=== PATIENT | female | born 1945 | race Asian ===

== ENCOUNTER 2017-01-31 22:24 | Emergency (ER) | payer MEDICARE, OTHER ==
--- NOTE | 2017-02-01 00:05 | Emergency Department Report ---
HPI - General Chief Complaint: Extremity Injury, Lower Time Seen by Provider: 02/01/17 00:01 - HPI HPI: This is a 71 year-old female who presents to the emergency department from [facility] with a reported complaint of left leg pain and swelling. Patient has a history of dementia and/or encephalopathy and is currently and possibly chronically nonverbal and therefore the patient is a poor historian. Currently it is unknown the duration of the patient's symptoms. It is unknown whether the patient is ambulatory in general or whether the patient received anything for her symptoms prior to presentation. She has a primary care physician listed as Dr. Sridhar Mello. ED Past Medical Hx - Past Medical History Hx Hypertension: Yes Hx Dementia: Yes Additional medical history: High Cholesterol - Social History Smoking Status: Unknown if ever smoked - Medications Home Medications: Home Medications Medication Instructions Recorded Confirmed Last Taken Type Acetaminophen [Acetaminophen TAB] 500 mg PO Q12HR 02/26/15 02/26/15 01/31/17 History Atenolol [Tenormin] 50 mg PO DAILY 02/26/15 02/26/15 01/31/17 History Donepezil [Aricept] 5 mg PO BID 02/26/15 02/26/15 01/31/17 History Haloperidol [Haldol] 2 mg PO QDAY 02/26/15 02/26/15 01/31/17 History Sertraline [Zoloft] 50 mg PO QDAY 02/26/15 02/26/15 01/31/17 History traZODone [Desyrel] 25 mg PO QHS 02/26/15 02/26/15 01/31/17 History Pantoprazole [Protonix TAB] 40 mg PO QDAY #30 tablet 02/27/15 01/31/17 Rx Levofloxacin [Levaquin TAB] 500 mg PO QDAY #5 tablet 01/28/17 01/31/17 Rx ED Review of Systems ROS: Stated complaint: LEFT LEG PAIN AND SWELLING Other details as noted in HPI Comment: Unobtainable due to pts medical conditions Physical Exam - Physical Exam Vital Signs: Vital Signs 01/31/17 01/31/17 01/31/17 23:07 23:10 23:16 Temperature 98.6 F Pulse Rate 99 H 96 H 102 H Respiratory 16 17 12 Rate Blood Pressure 139/60 142/67 Blood Pressure 139/60 [Right] O2 Sat by Pulse 100 100 100 Oximetry Physical Exam: GENERAL: The patient is well-developed well-nourished. HENT: Normocephalic. Atraumatic. Patient has moist mucous membranes. EYES: Extraocular motions are intact. Pupils equal reactive to light bilaterally. NECK: Supple. Trachea is midline. CHEST/LUNGS: Clear to auscultation. There is no respiratory distress noted. HEART/CARDIOVASCULAR: Regular. There is no tachycardia. There is no gallop rub or murmur. ABDOMEN: Abdomen is soft, nontender. Patient has normal bowel sounds. There is no abdominal distention. SKIN: Skin is warm and dry. There is some nonpitting swelling around the circumferential left knee and proximal tib-fib. There is no erythema, fluctuance or lesions. NEURO: Patient is awake but mostly nonverbal. Follows a few commands. Withdraws from painful stimuli. MUSCULOSKELETAL: There is some mild tenderness to palpation with flexion and/or extension of the left knee. No laxity with valgus or varus stress. Negative anterior and posterior drawer test. Neurovascularly intact. ED Course Vital Signs 01/31/17 01/31/17 01/31/17 23:07 23:10 23:16 Temperature 98.6 F Pulse Rate 99 H 96 H 102 H Respiratory 16 17 12 Rate Blood Pressure 139/60 142/67 Blood Pressure 139/60 [Right] O2 Sat by Pulse 100 100 100 Oximetry - Consultations Consultation #1: I spoke to the orthopedist supervisor carton and can supply for [facility], Dr. Bucio, regarding the lateral tibial plateau fracture and how to proceed. Dr. Rayk this into the case presentation and the imaging study/report and did not feel that the patient required admission or immediate surgical intervention. He has agreed to see the patient and his clinic on Tuesday. He recommends a knee immobilizer and for the patient to remain nonweightbearing until follow-up. 02/01/17 05:33 Consultation #2: I spoke to the patient's brother, Jose Renae, to let him know of the patient's presentation here, the diagnosis of the tibial plateau fracture, the plan for discharge home with knee immobilizer and nonweightbearing, and the need for follow-up with the orthopedist on Tuesday he says that he will follow up with the assisted living facility and make sure that she has appropriate follow-up. 02/01/17 06:05 02/01/17 06:05 ED Medical Decision Making - Lab Data Result diagrams: 02/01/17 00:10 02/01/17 00:10 - Radiology Data Radiology results: report reviewed CT of the left lower extremity without contrast shows mildly depressed comminuted fracture through the lateral tibial plateau. There is depression of the lateral tibial plateau by 3-4 mm. X-ray of the left femur and tib-fib shows a possible lateral tibial plateau fracture. Moderate size knee joint effusion is present. Subcutaneous edema. - Medical Decision Making 71-year-old female presents from her ECF with concern for left leg pain and swelling. She has a mild amount of discomfort to palpation around the knee and there is some swelling but no obvious deformities. X-rays were done of the tib- fib and femur and the results showed concern for possible tibial plateau fracture but recommended CT imaging. CT confirmed mildly depressed comminuted fracture to the lateral tibial plateau. The patient is normally ambulatory prior to her fall about 6 days ago. We do not have any orthopedist coverage for the next few days so I contacted [facility] and spoke with an orthopedist to recommended knee immobilizer, nonweightbearing, did not feel the patient required admission and/or transfer and has agreed to see the patient in his clinic on Tuesday. INFORMATION was given to the patient by discharge instructions as well as to the patient's brother. - Differential Diagnosis fracture, dislocation, DVT, cellulitis Critical Care Time: No Critical care attestation.: If time is entered above; I have spent that time in minutes in the direct care of this critically ill patient, excluding procedure time. ED Disposition Clinical Impression: Tibial plateau fracture, left Qualifiers: Encounter type: initial encounter Fracture type: closed Qualified Code(s): S82.142A - Displaced bicondylar fracture of left tibia, initial encounter for closed fracture Disposition: TO HOME OR SELFCARE Is pt being admited?: No Condition: Stable Instructions: Leg Fracture (ED) Additional Instructions: You were found to have a tibial plateau fracture of your left leg/knee. You will need to follow-up with an orthopedist in the next few days. You should remain in the knee immobilizer until follow-up with the orthopedist. You will be non-weight bearing to the left lower extremity until follow-up with the orthopedist. Return to the emergency Department with any worsening of your symptoms or any acute distress. I spoke with an orthopedist, Dr. Bucio, through [facility] regarding your injury and he has graciously agreed to see you in the office/clinic on TuesdayFebruary 02. The phone number to call for an appointment is . I have also given you a referral for another orthopedist, Dr. Fallon. Referrals: PRIMARY MD AGNES [Primary Care Provider] - 3-5 Days ELIJAH FALLON MD [Staff Physician] - 3-5 Days Time of Disposition: 05:41
--- NOTE | 2017-02-01 00:42 | XRay Report ---
FINAL REPORT PROCEDURE: XR FEMUR 2+V LT TECHNIQUE: LEFT femur radiographs, AP and lateral views. HISTORY: leg pain COMPARISON: No prior studies are available for comparison. FINDINGS: There appears to be mild lateral downsloping of the lateral tibial plateau. There is a subtle oblique lucency projecting through the lateral aspect of the tibial plateau. I cannot exclude a mild impaction fracture. There is a moderate-sized knee effusion present. Bone spurs are seen at the insertion of the quadriceps tendon on the patella and the patellar tendon insertion as well. Subcutaneous edema visualized throughout the left lower extremity. This is greater laterally than medially. IMPRESSION: Possible lateral tibial plateau fracture. Consider plain films of the knee or CT scan for further evaluation. Moderate-sized knee joint effusion is present Subcutaneous edema present as described.
[2017-02-01 00:50] LABS: Basophils % (Auto) 0.7 % (0.0-1.8); Eosinophils % (Auto) 0.5 % (0.0-4.3); Hematocrit 37.6 % (30.3-42.9); Hemoglobin 12.1 gm/dl (10.1-14.3); Mean Corpuscular HGB Conc 32 % (30-34); Mean Corpuscular Hemoglobin 30 pg (28-32); Mean Corpuscular Volume 94 fl (79-97); Platelet Count 338 K/mm3 (140-440); Red Cell Distribution Width 13.4 % (13.2-15.2); White Blood Count 9.2 K/mm3 (4.5-11.0)
[2017-02-01 00:55] LABS: Blood Urea Nitrogen 16 mg/dL (7-17); Calcium 9.8 mg/dL (8.4-10.2); Carbon Dioxide 28 mmol/L (22-30); Chloride 102.3 mmol/L (98-107); Creatine Kinase 1421 units/L (30-135); Glucose 105 mg/dL (65-100); Potassium 3.6 mmol/L (3.6-5.0); Sodium 140 mmol/L (137-145)
[2017-02-01 00:56] LABS: Anion Gap 13 mmol/L
[2017-02-01] MEDS ORDERED: NACL 0.9% 1000 ML 1,000 ML IV ONE ×2 (01:04→02:47)
--- NOTE | 2017-02-01 02:18 | Cat Scan Report ---
FINAL REPORT EXAM: CT LOWER EXTREMITY LT WO CON HISTORY: knee pain, ? plateau fracture LT KNEE COMPARISON: Plain films of the left femur from the same date. TECHNIQUE: Contiguous axial images were obtained. Additional sagittal and coronal reformatted images were obtained. FINDINGS: There is a depressed comminuted fracture through the lateral tibial plateau. There is depression of the lateral tibial plateau by 3-4 millimeters. Intracondylar notch and medial tibial plateau are preserved. Mild narrowing of the medial joint space compartment with mild marginal osteophyte. Small joint effusion with fluid fluid level. Mild patellar osteophyte and small superior inferior patellar enthesophyte. The patella, distal femur and proximal fibula are intact. IMPRESSION: Mildly depressed comminuted fracture through the lateral tibial plateau. There depression of the lateral tibial plateau by 3-4 millimeters.
[2017-02-01 05:52] VITALS: BP 101/64
--- NOTE | 2017-02-01 07:34 | XRay Report ---
LEFT TIBIA/FIBULA, 2 views: History: Left leg pain and swelling. Findings: A mildly depressed lateral tibial plateau fracture is identified. Depression is estimated at 5-6 mm. Hemarthrosis at the right knee is noted. The remainder of the tibia and fibula are intact. There is diffuse soft tissue swelling. IMPRESSION: Mildly displaced lateral tibial plateau fracture. Hemarthrosis at the knee. Further evaluation with CT left knee without contrast is recommended.
== END 2017-02-01 06:38 | disposition home or self-care (01) ==
LOC: ED 22:24
DX: S82.142A Displaced bicondylar fracture of left tibia, initial encounter for closed fracture (principal); I10 Essential (primary) hypertension; F03.90 Unspecified dementia, unspecified severity, without behavioral disturbance, psychotic disturbance, mood disturbance, and anxiety; E78.00 Pure hypercholesterolemia, unspecified; W19.XXXA Unspecified fall, initial encounter; Y93.89 Activity, other specified; Y92.89 Other specified places as the place of occurrence of the external cause; Y99.8 Other external cause status
CPT/HCPCS: 29505; 36415; 73552; 73590; 73700; 80048; 82140; 82550; 85025; 96360; 96361; 99284; J7030

== ENCOUNTER 2017-02-11 08:09 | Day surgery (SDC) | payer MEDICARE ==
[2017-02-11] MEDS ORDERED: SUBLIMAZE ONE (09:08)
[2017-02-11] MEDS ORDERED: XYLOCAINE MPF 2% ONE (09:08)
[2017-02-11] MEDS ORDERED: DIPRIVAN 10 MG/ML IV ONE (09:08)
--- NOTE | 2017-02-11 09:09 | Anesthesia Consultation ---
Anesthesia Consult and Med Hx Date of service: 02/11/17 - Airway Anesthetic Teeth Evaluation: Partials (unsure if upper or lower) ROM Head & Neck: Adequate Mental/Hyoid Distance: Adequate - Pulmonary Exam CTA: Yes - Cardiac Exam Cardiac Exam: RRR - Pre-Operative Health Status ASA Pre-Surgery Classification: ASA3 Proposed Anesthetic Plan: General - Pulmonary Hx Smoking: No Hx Sleep Apnea: No (DARRION PRE SCREEN LOW RISK) - Cardiovascular System Hx Hypertension: Yes - Central Nervous System Hx Psychiatric Problems: Yes (HX PSYCHOSIS, WITH PEROIDS OF AGITATION) - Other Systems Hx Cancer: No - Additional Comments Anesthesia Medical History Comments: could not perform airway exam, ptn has dementia
--- NOTE | 2017-02-11 09:09 | Anesthesia Day of Surgery ---
Anesthesia Day of Surgery - Day of Surgery Patient Examined: Yes Patient H&P Reviewed: Yes Patient is NPO: Yes
[2017-02-11] MEDS ORDERED: DILAUDID IV PRN (09:16)
[2017-02-11] MEDS ORDERED: MARCAINE-EPI/PF 0.5%-1:200,000 INFILTRATI ONE ×3 (09:30→12:00)
[2017-02-11] MEDS ORDERED: NEO SYNEPHRINE/NS Syringe(OR USE) IV ONE (09:30)
[2017-02-11] MEDS ORDERED: DEPO-MEDROL ONE (09:30)
[2017-02-11] MEDS ORDERED: PEPCID IV NR (10:00)
[2017-02-11] MEDS ORDERED: NACL 0.9% 1000 ML 1,000 ML IV SCH (10:00)
[2017-02-11] MEDS ORDERED: NACL 0.9% IR ONE (11:20)
[2017-02-11] MEDS ORDERED: DILAUDID ONE ×2 (11:37→12:04)
[2017-02-11] MEDS ORDERED: ZOFRAN ONE (12:00)
--- NOTE | 2017-02-11 12:24 | Procedure Note ---
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 Next the left lower extremity was exsanguinated followed by inflation of the pneumatic tourniquet to 300 mmHg routine stab wounds were made about the parapatellar areas following introduction of the arthroscope the hematoma was evacuated using the normal saline solution. Arthroscope was placed in the medial compartment the medial meniscus appeared to be intact as well as the articular surface of both the distal femur and proximal tibia the anterior cruciate ligament was seen and again appeared to be intact in the lateral compartment she was noted to have some degenerative tears in the lateral meniscus as well as fracture pattern along the mid to anterior portion of the lateral meniscus with minimal depression of the articular surface probe was used to next a evaluate the stability of the articular fragments following this the knee was then brought into extension. A C-arm was then used to evaluate the fracture using 2 smooth K wires inserted along the lateral border of the lateral tibial plateau the screws were advanced to medial border of the proximal tibia. Two 6.5mm cannulated screws were inserted using washers the fragments were compressed and AP and lateral x-ray were obtained and showed good reduction at the fracture site and placement of the cannulated screws. Following placement of the screws the arthroscope was reinserted into the knee joint medial fracture line noted prior to the screw placement appeared to reduce into a more anatomic position. Next the arthroscope was removed and the stab wounds were repaired using 3-0 nylon routine. Dressings were applied patient tolerated the procedure there complications. Anesthesia: GETA Surgeon: ELIJAH GARCIA Estimated blood loss: minimal Pathology: none Condition: stable Disposition: PACU
[2017-02-11] MEDS ORDERED: LOPRESSOR IV ONE (12:29)
[2017-02-11] MEDS ORDERED: NORMODYNE IV ONE (14:00)
--- NOTE | 2017-02-11 14:14 | Post Anesthesia Evaluation ---
- Post Anesthesia Evaluation Patient Participated: Yes (opens eyes but does not following commands) Airway Patent: Yes Stable Respiratory Function: Yes Nausea/Vomiting: No Temp > 96.8F: Yes Pain Manageable: Yes Adequeate Hydration: Yes Anesthesia Complications: No Block Receding Appropriately: Not Applicable Patient on Ventilator: No
[2017-02-11 15:08] VITALS: BP 169/95
--- NOTE | 2017-02-11 16:10 | XRay Report ---
Operative left knee: AP and lateral views demonstrate two transverse screws through the tibia in the subpatellar location. No other significant findings.
== END 2017-02-11 15:36 | disposition other institution (70) ==
LOC: OR 08:09
PROVIDERS: ATTEND Orthopaedic Surgery
DX: S82.142A Displaced bicondylar fracture of left tibia, initial encounter for closed fracture (principal); I10 Essential (primary) hypertension; F03.90 Unspecified dementia, unspecified severity, without behavioral disturbance, psychotic disturbance, mood disturbance, and anxiety; E78.00 Pure hypercholesterolemia, unspecified; A41.9 Sepsis, unspecified organism; N39.0 Urinary tract infection, site not specified; Z86.718 Personal history of other venous thrombosis and embolism; Z79.899 Other long term (current) drug therapy; X58.XXXA Exposure to other specified factors, initial encounter; Z82.49 Family history of ischemic heart disease and other diseases of the circulatory system
CPT/HCPCS: 27532; 73560; A4217; C1713; J1170; J2370; J2405; J2704; J3010; J7030; J1030

== ENCOUNTER 2017-02-22 00:05 | Emergency (ER) | payer MEDICARE ==
--- NOTE | 2017-02-22 01:51 | Emergency Department Report ---
ED General Adult HPI - General Chief complaint: Fall Stated complaint: MEDICAL CLEARANCE Time Seen by Provider: 02/22/17 01:42 Source: EMS (ems notes not available at time of chart dictation), RN notes reviewed, old records reviewed Mode of arrival: Stretcher Limitations: Altered Mental Status, Other (patient is demented. Patient is a poor historian. Left lower extremity is in a knee immobilizer) - History of Present Illness Initial comments: This is a 71-year-old female. The patient is previously known to this provider. Has a past medical history of dementia, recent hospital admission for surgical fixation to left lower extremity tibial plateau fracture. Patient is sent to the ER by personal correction/long term for medical clearance after being found on the floor, for uncertain duration of time and uncertain mechanism. The patient has no complaints at this time. -: unknown Severity scale (0 -10): 0 Improves with: none Worsens with: none Associated Symptoms: denies other symptoms - Related Data Home Medications Medication Instructions Recorded Confirmed Last Taken Acetaminophen [Acetaminophen TAB] 500 mg PO PRN PRN 02/26/15 02/11/17 02/10/17 Donepezil [Aricept] 10 mg PO QHS 02/26/15 02/11/17 02/11/17 Haloperidol [Haldol] 2 mg PO BID 02/26/15 02/11/17 02/11/17 Sertraline [Zoloft] 75 mg PO QDAY 02/26/15 02/11/17 02/10/17 AtorvaSTATin [Lipitor] 40 mg PO QHS 02/08/17 02/11/17 02/10/17 Memantine HCl [Namenda] 10 mg PO BID 02/08/17 02/11/17 02/11/17 hydrALAZINE [Apresoline] 12.5 mg PO TID 02/08/17 02/11/17 02/10/17 Previous Rx's Medication Instructions Recorded Last Taken Type HYDROcodone/APAP 5-325 [[place] 1 each PO Q4HR PRN #30 tablet 02/11/17 Unknown Rx 5-325 mg TAB] Allergies Allergy/AdvReac Type Severity Reaction Status Date / Time No Known Allergies Allergy Verified 02/08/17 11:44 ED Review of Systems ROS: Stated complaint: MEDICAL CLEARANCE Other details as noted in HPI Comment: Unobtainable due to pts medical conditions ED Past Medical Hx - Past Medical History Previous Medical History?: Yes Hx Hypertension: Yes Hx Dementia: Yes (NONVERBAL AT TIMES) Additional medical history: High Cholesterol - Social History Smoking Status: Never Smoker - Medications Home Medications: Home Medications Medication Instructions Recorded Confirmed Last Taken Type Acetaminophen [Acetaminophen TAB] 500 mg PO PRN PRN 02/26/15 02/11/17 02/10/17 History Donepezil [Aricept] 10 mg PO QHS 02/26/15 02/11/17 02/11/17 History Haloperidol [Haldol] 2 mg PO BID 02/26/15 02/11/17 02/11/17 History Sertraline [Zoloft] 75 mg PO QDAY 02/26/15 02/11/17 02/10/17 History AtorvaSTATin [Lipitor] 40 mg PO QHS 02/08/17 02/11/17 02/10/17 History Memantine HCl [Namenda] 10 mg PO BID 02/08/17 02/11/17 02/11/17 History hydrALAZINE [Apresoline] 12.5 mg PO TID 02/08/17 02/11/17 02/10/17 History HYDROcodone/APAP 5-325 [[place] 1 each PO Q4HR PRN #30 tablet 02/11/17 Unknown Rx 5-325 mg TAB] ED Physical Exam - General Limitations: Other (patient is demented, patient nonverbal, patient is a poor historian) General appearance: alert, in no apparent distress - Head Head exam: Present: atraumatic, normocephalic - Eye Eye exam: Present: normal appearance, EOMI - ENT ENT exam: Present: normal exam, normal orophraynx, mucous membranes moist - Neck Neck exam: Present: normal inspection, full ROM. Absent: tenderness, meningismus - Respiratory Respiratory exam: Present: normal lung sounds bilaterally. Absent: respiratory distress, wheezes, rales, rhonchi, stridor, chest wall tenderness - Cardiovascular Cardiovascular Exam: Present: regular rate, normal rhythm, normal heart sounds. Absent: bradycardia, tachycardia, irregular rhythm, systolic murmur, diastolic murmur, rubs, gallop - GI/Abdominal GI/Abdominal exam: Present: soft, normal bowel sounds. Absent: distended, tenderness, guarding, rigid, pulsatile mass - Extremities Exam Extremities exam: Present: normal inspection, full ROM, normal capillary refill , other (the compartments are soft. The pelvis is stable. There is no long bony tenderness. Surgical site in the left lower extremity demonstrates no redness, pus or streaking. No long bony tenderness. 2+ pulses noted in the bilateral upper and lower extremities.). Absent: pedal edema, joint swelling, calf tenderness - Back Exam Back exam: Present: normal inspection. Absent: tenderness, CVA tenderness (R), paraspinal tenderness - Neurological Exam Neurological exam: Present: alert, other (there is no facial droop. Patient moving 4 extremities spontaneously.) - Psychiatric Psychiatric exam: Present: normal affect, normal mood - Skin Skin exam: Present: warm, dry, intact, normal color. Absent: rash ED Course Vital Signs 02/22/17 02/22/17 02/22/17 00:25 00:30 00:37 Temperature 98.4 F Pulse Rate 79 67 Respiratory 14 15 14 Rate Blood Pressure 141/63 141/63 Blood Pressure 141/63 [Left] O2 Sat by Pulse 100 100 100 Oximetry 02/22/17 02/22/17 02/22/17 00:45 01:00 01:15 Temperature Pulse Rate 74 71 71 Respiratory 15 15 12 Rate Blood Pressure 139/109 139/63 147/63 Blood Pressure [Left] O2 Sat by Pulse Oximetry 02/22/17 02/22/17 02/22/17 01:30 01:45 02:00 Temperature Pulse Rate 70 72 72 Respiratory 10 L 15 14 Rate Blood Pressure 139/70 146/66 139/70 Blood Pressure [Left] O2 Sat by Pulse 100 100 Oximetry 02/22/17 02:15 Temperature Pulse Rate 69 Respiratory 16 Rate Blood Pressure 137/63 Blood Pressure [Left] O2 Sat by Pulse Oximetry ED Medical Decision Making - Lab Data Result diagrams: 02/22/17 02:04 02/22/17 02:04 Vital Signs 02/22/17 02/22/17 02/22/17 00:25 00:30 00:37 Temperature 98.4 F Pulse Rate 79 67 Respiratory 14 15 14 Rate Blood Pressure 141/63 141/63 Blood Pressure 141/63 [Left] O2 Sat by Pulse 100 100 100 Oximetry 02/22/17 02/22/17 02/22/17 00:45 01:00 01:15 Temperature Pulse Rate 74 71 71 Respiratory 15 15 12 Rate Blood Pressure 139/109 139/63 147/63 Blood Pressure [Left] O2 Sat by Pulse Oximetry 02/22/17 02/22/17 02/22/17 01:30 01:45 02:00 Temperature Pulse Rate 70 72 72 Respiratory 10 L 15 14 Rate Blood Pressure 139/70 146/66 139/70 Blood Pressure [Left] O2 Sat by Pulse 100 100 Oximetry 02/22/17 02:15 Temperature Pulse Rate 69 Respiratory 16 Rate Blood Pressure 137/63 Blood Pressure [Left] O2 Sat by Pulse Oximetry Labs 02/22/17 02/22/17 02/22/17 02:04 02:04 02:27 WBC 7.3 RBC 4.04 Hgb 12.4 Hct 37.4 MCV 93 MCH 31 MCHC 33 RDW 14.1 Plt Count 294 Sodium 141 Potassium 3.9 Chloride 106.8 Carbon Dioxide 23 Anion Gap 15 BUN 14 Creatinine 0.7 Estimated GFR > 60 BUN/Creatinine Ratio 20.00 Glucose 110 H Calcium 9.2 Total Creatine Kinase 112 Urine Color Yellow Urine Turbidity Clear Urine pH 5.0 Ur Specific [place] 1.029 Urine Protein <15 mg/dl Urine Glucose (UA) Neg Urine Ketones Neg Urine Blood Neg Urine Nitrite Neg Urine Bilirubin Neg Urine Urobilinogen 4.0 Ur Leukocyte Esterase Neg Urine WBC (Auto) 1.0 Urine RBC (Auto) 3.0 U Epithel Cells (Auto) 1.0 Calcium Oxalate Crystal 1+ Urine Mucus 2+ - EKG Data 02/22/17 03:22 Normal sinus, 70 beats per minute, normal intervals, normal axis, not morphologically consistent with STEMI. - Radiology Data Radiology results: report reviewed, image reviewed Noncontrast CT scan of the brain is negative. Noncontrast CT scan of the cervical spine is negative. - Medical Decision Making Differential diagnosis: Mechanical fall, intracranial injury, cervical spine injury Assessment and plan: 71-year-old female who was found down at her long term, uncertain duration of time, uncertain mechanism. Patient is afebrile, with reassuring vital signs, unremarkable laboratory studies, unremarkable physical exam, unremarkable EKG, no obvious traumatic injury, appears quite pleasant. There is no medical contrast indication at this time to the patient returning to her personal correction. Her surgical site appears to be clean and healing well, with no obvious infection. Critical care attestation.: If time is entered above; I have spent that time in minutes in the direct care of this critically ill patient, excluding procedure time. ED Disposition Clinical Impression: History of fall Disposition: DC/TX-[id number] ANOTHER TYPE HLTHCARE Is pt being admited?: No Does the pt Need Aspirin: No Condition: Stable Instructions: Fall Prevention (ED) Additional Instructions: Continue current outpatient medications. Follow-up with your orthopedic surgeon as scheduled within the next month. Follow-up with primary care doctor within the next month. Return to the ER readily with fevers, chills, lethargy, irritability, projectile vomiting, change in mental status, confusion, fevers, inability to tolerate liquid feeds. Referrals: PRIMARY CARE, [Primary Care Provider] - 3-5 Days MADHU WATTS MD [Staff Physician] - 3-5 Days ELIJAH GARCIA MD [Staff Physician] - 3-5 Days
[2017-02-22 02:14] LABS: Hematocrit 37.4 % (30.3-42.9); Hemoglobin 12.4 gm/dl (10.1-14.3); Mean Corpuscular HGB Conc 33 % (30-34); Mean Corpuscular Hemoglobin 31 pg (28-32); Mean Corpuscular Volume 93 fl (79-97); Platelet Count 294 K/mm3 (140-440); Red Blood Count 4.04 M/mm3 (3.65-5.03); Red Cell Distribution Width 14.1 % (13.2-15.2); White Blood Count 7.3 K/mm3 (4.5-11.0)
[2017-02-22 02:35] LABS: Blood Urea Nitrogen 14 mg/dL (7-17); Calcium 9.2 mg/dL (8.4-10.2); Carbon Dioxide 23 mmol/L (22-30); Chloride 106.8 mmol/L (98-107); Creatine Kinase 112 units/L (30-135); Glucose 110 mg/dL (65-100); Sodium 141 mmol/L (137-145)
[2017-02-22 03:02] LABS: Bilirubin,Urine NEG (Negative); Blood,Urine NEG (Negative); Ketones,Urine NEG (Negative); Leukocyte Esterase,Urine NEG (Negative); Mucus,Urine 2+ /HPF; Nitrite,Urine NEG (Negative); Protein,Urine <15 mg/dL mg/dL (Negative)
--- NOTE | 2017-02-22 03:09 | Cat Scan Report ---
FINAL REPORT EXAM: CT HEAD/BRAIN WO CON HISTORY: fall COMPARISON: CT of the head from December 30, 2016. TECHNIQUE: Axial images obtained skull base through vertex. FINDINGS: No acute intracranial hemorrhage, midline shift or pathologic extra axial fluid collection. [id number] age related volume loss with compensatory dilatation of the ventricular system and chronic small vessel ischemic disease. Volume loss is more pronounced involving the temporal lobes. Otherwise, acosta-white differentiation preserved. Calvarium grossly intact. Mild mucosal thickening the paranasal sinuses. Mastoid air cells are clear. Prior cataract surgery. IMPRESSION: No grossly acute intracranial abnormality. Mild to moderate age related volume loss and chronic small vessel ischemic disease.
--- NOTE | 2017-02-22 03:16 | Cat Scan Report ---
FINAL REPORT EXAM: CT CERVICAL SPINE WO CON HISTORY: fall COMPARISON: December 2016. TECHNIQUE: Axial images obtained through the cervical spine. Additional sagittal and coronal reformatted images were obtained. FINDINGS: Normal lordotic curvature of the cervical spine. Cervical vertebral body heights are preserved. No acute fracture or traumatic subluxation. Odontoid process, articular pillars and occipital condyles are intact. Mild to moderate loss of disc height throughout the cervical spine with prominent endplate osteophyte. There is moderate severe canal stenosis at the C3-C4 level due to endplate osteophyte broad-based disc bulge. Severe right and mild left foraminal narrowing at that level due to uncovertebral hypertrophy and facet changes. Mild to moderate canal stenosis mild foraminal narrowing at the C4-C5 through C6-C7 levels due to endplate osteophyte, broad-based disc bulges and uncovertebral hypertrophy. Mild to moderate calcified plaque at the carotid bifurcations. Mild depression of the superior T2 endplate stable from prior study. IMPRESSION: No acute fracture or subluxation of the cervical spine. Moderate severe focal degenerative changes at the C3-C4 level mild to moderate degenerative changes throughout the remainder of the cervical spine.
[2017-02-22 03:21] LABS: Anion Gap 15 mmol/L; Potassium 3.9 mmol/L (3.6-5.0)
[2017-02-22 05:54] VITALS: BP 141/65
== END 2017-02-22 07:32 | disposition other institution (70) ==
LOC: ED 00:05
DX: R41.82 Altered mental status, unspecified (principal); I10 Essential (primary) hypertension; F03.90 Unspecified dementia, unspecified severity, without behavioral disturbance, psychotic disturbance, mood disturbance, and anxiety; E78.00 Pure hypercholesterolemia, unspecified
CPT/HCPCS: 36415; 70450; 72125; 80048; 81001; 82550; 85027; 87086; 93005; 93010

== ENCOUNTER 2017-02-22 23:35 | Inpatient (IN) | payer MEDICARE ==
--- NOTE | 2017-02-23 00:48 | Emergency Department Report ---
HPI - General Chief Complaint: Fall Time Seen by Provider: 02/23/17 00:32 - HPI HPI: Randell Felton The patient is a 67-year-old female presenting with a chief complaint of fall at assisted living facility. The patient has a history of Alzheimer's and is unable to provide history. Patient reportedly had a ground-level fall at [facility]. Patient suffered abrasions to the right side of forehead. Patient makes eye contact but does not respond verbally when questioned. I spoke with staff at [facility] and they state at approximately 22:45 this evening while rounds were being made patient was again found on the floor. Last known well time was approximately 20:45 as vitals are taken every other hour. This fall was not witnessed Location: Head Duration: This evening Quality: Unknown Severity: Unknown Modifying factors: [see above] Context: [see above] Mode of transportation: [not driving] ED Past Medical Hx - Past Medical History Hx Hypertension: Yes Hx Dementia: Yes (NONVERBAL AT TIMES) Additional medical history: High Cholesterol - Surgical History Past Surgical History?: No - Family History Family history: no significant - Social History Smoking Status: Unknown if ever smoked - Medications Home Medications: Home Medications Medication Instructions Recorded Confirmed Last Taken Type Acetaminophen [Acetaminophen TAB] 500 mg PO PRN PRN 02/26/15 02/11/17 02/10/17 History Donepezil [Aricept] 10 mg PO QHS 02/26/15 02/11/17 02/11/17 History Haloperidol [Haldol] 2 mg PO BID 02/26/15 02/11/17 02/11/17 History Sertraline [Zoloft] 75 mg PO QDAY 02/26/15 02/11/17 02/10/17 History AtorvaSTATin [Lipitor] 40 mg PO QHS 02/08/17 02/11/17 02/10/17 History Memantine HCl [Namenda] 10 mg PO BID 02/08/17 02/11/17 02/11/17 History hydrALAZINE [Apresoline] 12.5 mg PO TID 02/08/17 02/11/17 02/10/17 History HYDROcodone/APAP 5-325 [[place] 1 each PO Q4HR PRN #30 tablet 02/11/17 Unknown Rx 5-325 mg TAB] ED Review of Systems ROS: Stated complaint: FALL Other details as noted in HPI Comment: Unobtainable due to pts medical conditions Physical Exam - Physical Exam Vital Signs: Vital Signs 02/22/17 23:59 Temperature 98.1 F Pulse Rate 70 Respiratory 18 Rate Blood Pressure 148/60 O2 Sat by Pulse 100 Oximetry Physical Exam: GENERAL: The patient is well-developed well-nourished elderly female lying on stretcher not appearing to be in acute distress. [] HEENT: Normocephalic. Abrasion to the right forehead and right periorbital region. Extraocular motions are intact. Patient has moist mucous membranes. NECK: Supple. No axial step-offs CHEST/LUNGS: Clear to auscultation. There is no respiratory distress noted. HEART/CARDIOVASCULAR: Regular. There is no tachycardia. There is no gallop rub or murmur. ABDOMEN: Abdomen is soft, nontender. Patient has normal bowel sounds. There is no abdominal distention. SKIN: There is no rash. There is no edema. There is no diaphoresis. NEURO: The patient is awake and makes eye contact but is nonverbal. MUSCULOSKELETAL: There is no deformity. ED Course Vital Signs 02/22/17 23:59 Temperature 98.1 F Pulse Rate 70 Respiratory 18 Rate Blood Pressure 148/60 O2 Sat by Pulse 100 Oximetry ED Medical Decision Making - Lab Data Result diagrams: 02/23/17 01:29 02/23/17 01:29 Laboratory Tests 02/23/17 02/23/17 01:29 01:29 WBC 6.2 RBC 4.30 Hgb 13.2 Hct 40.1 MCV 93 MCH 31 MCHC 33 RDW 13.9 Plt Count 297 Lymph % (Auto) 38.8 H Benzie % (Auto) 8.5 H Eos % (Auto) 1.5 Baso % (Auto) 1.2 Lymph # 2.4 Benzie # 0.5 Eos # 0.1 Baso # 0.1 Seg Neutrophils % 50.0 Seg Neutrophils # 3.1 Sodium 143 Potassium 4.1 Chloride 104.6 Carbon Dioxide 25 Anion Gap 18 BUN 11 Creatinine 0.7 Estimated GFR > 60 BUN/Creatinine Ratio 15.71 Glucose 97 Calcium 9.7 Total Creatine Kinase 140 H CK-MB (CK-2) 2.1 CK-MB (CK-2) Rel Index 1.5 Troponin T < 0.010 - EKG Data -: EKG Interpreted by Me EKG shows normal: sinus rhythm Rate: normal - EKG Data When compared to previous EKG there are: changes noted Interpretation: nonspecific ST-T wave sis (T-wave inversions in leads 1, aVL) - Radiology Data Radiology results: report reviewed (CT head, CT cervical spine), image reviewed (CT head, CT cervical spine) CT head, CT cervical spine (no acute injuries) - Medical Decision Making This is the second day in a roll the patient has been found on the ground and the fall has not been witnessed. It is uncertain if the patient is having syncopal episodes or simply falling. Given that this is the second time the patient is found on the ground limit the patient to the hospital for evaluation as I cannot be certain the patient suffered a syncopal episode - Differential Diagnosis ICH, closed head injury, cervical fracture, facial abrasion Critical care attestation.: If time is entered above; I have spent that time in minutes in the direct care of this critically ill patient, excluding procedure time. ED Disposition Clinical Impression: Closed head injury, Facial abrasion, Fall Disposition: DC-09 OP ADMIT IP TO THIS HOSP Is pt being admited?: Yes Does the pt Need Aspirin: Yes Condition: Fair Referrals: PRIMARY CARE, [Primary Care Provider] - 3-5 Days Time of Disposition: 02:34 (hospitalist paged)
--- NOTE | 2017-02-23 01:17 | Cat Scan Report ---
FINAL REPORT EXAM: CT HEAD/BRAIN WO CON HISTORY: fall COMPARISON: CT of the head from January 26, 2017. TECHNIQUE: Axial images obtained skull base through vertex. FINDINGS: No acute intracranial hemorrhage, midline shift or pathologic extra axial fluid collection. Moderate volume loss with compensatory dilatation of the ventricular system and chronic small vessel ischemic disease. Volume loss is more pronounced involving the temporal lobes. Otherwise, acosta-white differentiation preserved. Calvarium grossly intact. Prior cataract surgery. Mild calcification of carotid siphons. Visualized para-nasal sinuses and mastoid air cells are clear. Stable small bony outgrowth at the posterior inferior margin of the left occipital calvarium. Mild soft tissue swelling over the right frontal calvarium. IMPRESSION: No grossly acute intracranial abnormality. Moderate volume loss and mild chronic small vessel ischemic disease. Mild soft tissue swelling over the right frontal calvarium. No calvarial fracture.
--- NOTE | 2017-02-23 01:27 | Cat Scan Report ---
FINAL REPORT EXAM: CT CERVICAL SPINE WO CON HISTORY: fall COMPARISON: CT of the cervical spine from yesterday. TECHNIQUE: Axial images obtained through the cervical spine. Additional sagittal and coronal reformatted images were obtained. FINDINGS: Normal lordotic curvature of the cervical spine. Cervical vertebral body heights are preserved. No acute fracture or traumatic subluxation. Odontoid process, articular pillars and occipital condyles are intact. Moderate severe focal canal stenosis C3-C4 level due to endplate osteophyte and disc bulge at that level. Severe right and mild left foramina at that level due to uncovertebral hypertrophy. Mild to moderate canal stenosis and mild foraminal narrowing at the C4-C5 through C6-C7 levels due to endplate osteophyte, broad-based disc bulges and uncovertebral hypertrophy. Mild facet changes at those levels. No change from recent study. Minimal scarring at the lung apices. Small diverticulum at the lateral margin of the proximal cervical esophagus. Stable hypodense thyroid nodules. Stable subtle depression of the superior T2 endplate which appears chronic. IMPRESSION: No acute fracture or subluxation of the cervical spine. Moderate severe focal degenerative changes at the C3-C4 level and mild to moderate degenerative changes throughout the remainder of the cervical spine. No change from prior study.
[2017-02-23 02:05] LABS: Basophils % (Auto) 1.2 % (0.0-1.8); Eosinophils % (Auto) 1.5 % (0.0-4.3); Hematocrit 40.1 % (30.3-42.9); Hemoglobin 13.2 gm/dl (10.1-14.3); Mean Corpuscular HGB Conc 33 % (30-34); Mean Corpuscular Hemoglobin 31 pg (28-32); Mean Corpuscular Volume 93 fl (79-97); Platelet Count 297 K/mm3 (140-440); Red Cell Distribution Width 13.9 % (13.2-15.2); White Blood Count 6.2 K/mm3 (4.5-11.0)
[2017-02-23 02:26] LABS: Creatine Kinase MB 2.1 ng/mL (0.0-4.0)
[2017-02-23 02:27] LABS: Anion Gap 18 mmol/L; BUN/Creatinine Ratio 15.71; Blood Urea Nitrogen 11 mg/dL (7-17); Calcium 9.7 mg/dL (8.4-10.2); Carbon Dioxide 25 mmol/L (22-30); Chloride 104.6 mmol/L (98-107); Creatine Kinase 140 units/L (30-135); Glucose 97 mg/dL (65-100); Potassium 4.1 mmol/L (3.6-5.0); Sodium 143 mmol/L (137-145)
[2017-02-23] MEDS ORDERED: TYLENOL PO PRN (08:52)
[2017-02-23] MEDS ORDERED: ZOFRAN IM PRN (08:55)
--- NOTE | 2017-02-23 08:57 | Progress Note ---
Hospitalist Physical - Constitutional Vitals: Temp Pulse Resp BP Pulse Ox 98.1 F 75 18 109/75 100 02/22/17 23:59 02/23/17 05:55 02/23/17 05:55 02/23/17 05:55 02/23/17 04:03 Results - Labs CBC & Chem 7: 02/23/17 01:29 02/23/17 01:29 Labs: Laboratory Last Values WBC 6.2 K/mm3 (4.5-11.0) 02/23/17 01:29 RBC 4.30 M/mm3 (3.65-5.03) 02/23/17 01:29 Hgb 13.2 gm/dl (10.1-14.3) 02/23/17 01:29 Hct 40.1 % (30.3-42.9) 02/23/17 01:29 MCV 93 fl (79-97) 02/23/17 01:29 MCH 31 pg (28-32) 02/23/17 01:29 MCHC 33 % (30-34) 02/23/17 01:29 RDW 13.9 % (13.2-15.2) 02/23/17 01:29 Plt Count 297 K/mm3 (140-440) 02/23/17 01:29 Lymph % (Auto) 38.8 % (13.4-35.0) H 02/23/17 01:29 Alexander % (Auto) 8.5 % (0.0-7.3) H 02/23/17 01:29 Eos % (Auto) 1.5 % (0.0-4.3) 02/23/17 01:29 Baso % (Auto) 1.2 % (0.0-1.8) 02/23/17 01:29 Lymph # 2.4 K/mm3 (1.2-5.4) 02/23/17 01:29 Alexander # 0.5 K/mm3 (0.0-0.8) 02/23/17 01:29 Eos # 0.1 K/mm3 (0.0-0.4) 02/23/17 01:29 Baso # 0.1 K/mm3 (0.0-0.1) 02/23/17 01:29 Seg Neutrophils % 50.0 % (40.0-70.0) 02/23/17 01:29 Seg Neutrophils # 3.1 K/mm3 (1.8-7.7) 02/23/17 01:29 Sodium 143 mmol/L (137-145) 02/23/17 01:29 Potassium 4.1 mmol/L (3.6-5.0) 02/23/17 01:29 Chloride 104.6 mmol/L (98-107) 02/23/17 01:29 Carbon Dioxide 25 mmol/L (22-30) 02/23/17 01:29 Anion Gap 18 mmol/L 02/23/17 01:29 BUN 11 mg/dL (7-17) 02/23/17 01:29 Creatinine 0.7 mg/dL (0.7-1.2) 02/23/17 01:29 Estimated GFR > 60 ml/min 02/23/17 01:29 BUN/Creatinine Ratio 15.71 % 02/23/17 01:29 Glucose 97 mg/dL (65-100) 02/23/17 01:29 Calcium 9.7 mg/dL (8.4-10.2) 02/23/17 01:29 Total Creatine Kinase 140 units/L (30-135) H 02/23/17 01:29 CK-MB (CK-2) 2.1 ng/mL (0.0-4.0) 02/23/17 01:29 CK-MB (CK-2) Rel Index 1.5 (0-4) 02/23/17 01:29 Troponin T < 0.010 ng/mL (0.00-0.029) 02/23/17 01:29
[2017-02-23] MEDS ORDERED: LEVAQUIN PO SCH (10:00)
[2017-02-23] MEDS ORDERED: DULCOLAX PR PRN (10:00)
[2017-02-23] MEDS ORDERED: ZOFRAN IV PRN (11:00)
[2017-02-23] MEDS: ZOLOFT PO SCH (11:12)
[2017-02-23] MEDS: NAMENDA PO SCH ×2 (11:14→21:49)
[2017-02-23] MEDS: NACL 0.9% 1000 ML 1,000 ML IV SCH (11:17)
--- NOTE | 2017-02-23 11:18 | History and Physical Report ---
History of Present Illness Date of examination: 02/23/17 Date of admission: 02/23/17 08:52 Chief complaint: Fall History of present illness: Patient is a 71 years old with past medical history of hypertension, hyperlipidemia and Dementia, presents to emergency department with a chief complaint of fall at assisted living facility. Patient has history of Alzheimer's confused and unable to provide history. History taken from ED staff and medical records. Patient reportedly had a ground-level fall at [facility]. Patient have found down on the floor yesterday. Patient suffered abrasions to the right side of forehead. This fall was not witnessed. No reports of fever, chills, chest pain, palpitation, abdomen probable, syncope , seizures, or recent ill contacts. Past History Past Medical History: hypertension, hyperlipidemia, other (dementia) Past Surgical History: No surgical history Social history: other (unable to assess due to patient's mental status) Family history: other (unable to assess due to patient's mental status) Medications and Allergies Allergies Allergy/AdvReac Type Severity Reaction Status Date / Time No Known Allergies Allergy Verified 02/08/17 11:44 Home Medications Medication Instructions Recorded Confirmed Last Taken Type RX: Donepezil [Aricept] 10 mg PO QHS 02/26/15 02/23/17 02/11/17 History RX: Haloperidol [Haldol] 2 mg PO BID 02/26/15 02/23/17 02/11/17 History RX: Sertraline [Zoloft] 75 mg PO QDAY 02/26/15 02/23/17 02/10/17 History AtorvaSTATin [Lipitor] 40 mg PO QHS 02/08/17 02/23/17 02/10/17 History Memantine HCl [Namenda] 10 mg PO BID 02/08/17 02/23/17 02/11/17 History hydrALAZINE [Apresoline] 12.5 mg PO TID 02/08/17 02/23/17 02/10/17 History Levofloxacin [Levaquin TAB] 500 mg PO QDAY 02/23/17 02/23/17 Unknown History Active Meds: Active Medications Acetaminophen (Tylenol) 650 mg PO Q4H PRN PRN Reason: Pain MILD(1-3)/Fever >100.5/HURT Atorvastatin Calcium (Lipitor) 40 mg PO QHS [facility] Bisacodyl (Dulcolax) 10 mg MT QDAY PRN PRN Reason: Constipation unrelieved by MOM Donepezil HCl (Aricept) 10 mg PO QHS [facility] Hydralazine HCl (Apresoline) 12.5 mg PO TID [facility] Sodium Chloride (Nacl 0.9% 1000 Ml) 1,000 mls @ 75 mls/hr IV DIRECT [facility] Last Admin: 02/23/17 11:17 Dose: 75 mls/hr Memantine (Namenda) 10 mg PO BID [facility] Last Admin: 02/23/17 11:14 Dose: 10 mg Ondansetron HCl (Zofran) 4 mg IV Q4H PRN PRN Reason: Nausea And Vomiting Sertraline HCl (Zoloft) 75 mg PO QDAY [facility] Last Admin: 02/23/17 11:12 Dose: 75 mg Review of Systems ROS unobtainable: due to mental status (unable to assess due to patient's mental status) Exam - Constitutional Vitals: Temp Pulse Resp BP Pulse Ox 98.1 F 66 13 143/51 100 02/22/17 23:59 02/23/17 09:46 02/23/17 09:46 02/23/17 09:46 02/23/17 09:00 General appearance: Present: other (altered mental status) - EENT Eyes: Present: PERRL ENT: hearing intact - Neck Neck: Present: supple - Respiratory Respiratory effort: normal Respiratory: bilateral: CTA - Cardiovascular Heart rate: 73 Rhythm: regular Heart Sounds: Present: S1 & S2 - Extremities Extremities: no ischemia Peripheral Pulses: within normal limits - Abdominal General gastrointestinal: Present: soft, non-tender Female genitourinary: Present: deferred - Rectal Rectal Exam: deferred - Integumentary Integumentary: Present: clear (abrasions to the right side of forehead), warm, dry - Musculoskeletal Musculoskeletal: strength equal bilaterally - Psychiatric Psychiatric: intact judgment & insight (impaired judgment) - Neurologic Neurologic: moves all extremities - Allied Health Allied health notes reviewed: nursing Results - Labs CBC & Chem 7: 02/23/17 01:29 02/23/17 01:29 Labs: Laboratory Last Values WBC 6.2 K/mm3 (4.5-11.0) 02/23/17 01:29 RBC 4.30 M/mm3 (3.65-5.03) 02/23/17 01:29 Hgb 13.2 gm/dl (10.1-14.3) 02/23/17 01:29 Hct 40.1 % (30.3-42.9) 02/23/17 01:29 MCV 93 fl (79-97) 02/23/17 01:29 MCH 31 pg (28-32) 02/23/17 01: MCHC 33 % (30-34) 02/23/17 01:29 RDW 13.9 % (13.2-15.2) 02/23/17 01:29 Plt Count 297 K/mm3 (140-440) 02/23/17 01:29 Lymph % (Auto) 38.8 % (13.4-35.0) H 02/23/17 01:29 Wallace % (Auto) 8.5 % (0.0-7.3) H 02/23/17 01:29 Eos % (Auto) 1.5 % (0.0-4.3) 02/23/17 01:29 Baso % (Auto) 1.2 % (0.0-1.8) 02/23/17 01:29 Lymph # 2.4 K/mm3 (1.2-5.4) 02/23/17 01:29 Wallace # 0.5 K/mm3 (0.0-0.8) 02/23/17 01:29 Eos # 0.1 K/mm3 (0.0-0.4) 02/23/17 01:29 Baso # 0.1 K/mm3 (0.0-0.1) 02/23/17 01:29 Seg Neutrophils % 50.0 % (40.0-70.0) 02/23/17 01:29 Seg Neutrophils # 3.1 K/mm3 (1.8-7.7) 02/23/17 01:29 Sodium 143 mmol/L (137-145) 02/23/17 01:29 Potassium 4.1 mmol/L (3.6-5.0) 02/23/17 01:29 Chloride 104.6 mmol/L (98-107) 02/23/17 01:29 Carbon Dioxide 25 mmol/L (22-30) 02/23/17 01:29 Anion Gap 18 mmol/L 02/23/17 01:29 BUN 11 mg/dL (7-17) 02/23/17 01:29 Creatinine 0.7 mg/dL (0.7-1.2) 02/23/17 01:29 Estimated GFR > 60 ml/min 02/23/17 01:29 BUN/Creatinine Ratio 15.71 % 02/23/17 01:29 Glucose 97 mg/dL (65-100) 02/23/17 01:29 Calcium 9.7 mg/dL (8.4-10.2) 02/23/17 01:29 Total Creatine Kinase 140 units/L (30-135) H 02/23/17 01:29 CK-MB (CK-2) 2.1 ng/mL (0.0-4.0) 02/23/17 01:29 CK-MB (CK-2) Rel Index 1.5 (0-4) 02/23/17 01:29 Troponin T < 0.010 ng/mL (0.00-0.029) 02/23/17 01:29 - Imaging and Cardiology CT Scan - head: image reviewed Assessment and Plan Assessment and plan: Patient is a 71 years old with past medical history of hypertension, hyperlipidemia and Dementia, presents to emergency department with a chief complaint of fall at assisted living facility. Patient has history of Alzheimer's confused and unable to provide history. History taken from ED staff and medical records. Patient reportedly had a ground-level fall at [facility]. Patient have found down on the floor yesterday. Status Post Fall CT of the head no acute intracranial abnormalities except mild soft tissue swelling to right side of forehead. CT of the cervical spine no acute fracture or subluxation of the cervical spine. Supportive care. Facial abrasion Wound care consult Hypertension We will resume home antihypertensive medications Closely monitor blood pressure Hyperlipidemia Resume home antilipid agents. Mild rhabdomyolysis Most likely due to injury Started on IV fluid hydration Closely monior of total creatinine kinase. DVT/prophylaxis Lovenox Advance Directives: Yes VTE prophylaxis?: Chemical Contraindication Mechanical VTE Prophylaxis: Treatment Not Indicated Plan of care discussed with patient/family: Yes
[2017-02-23] MEDS: APRESOLINE PO SCH ×2 (13:46→21:50)
[2017-02-23] MEDS ORDERED: ARICEPT PO SCH (22:00)
[2017-02-23] MEDS ORDERED: LOVENOX SUB-Q SCH (22:00)
[2017-02-24] MEDS: NACL 0.9% 1000 ML 1,000 ML IV SCH (02:18)
[2017-02-24 05:02] LABS: Basophils % (Auto) 1.1 % (0.0-1.8); Eosinophils % (Auto) 1.3 % (0.0-4.3); Hematocrit 40.8 % (30.3-42.9); Hemoglobin 13.3 gm/dl (10.1-14.3); Mean Corpuscular HGB Conc 33 % (30-34); Mean Corpuscular Hemoglobin 30 pg (28-32); Mean Corpuscular Volume 93 fl (79-97); Platelet Count 310 K/mm3 (140-440); Red Blood Count 4.37 M/mm3 (3.65-5.03); White Blood Count 6.7 K/mm3 (4.5-11.0)
[2017-02-24 05:21] LABS: Anion Gap 17 mmol/L; Blood Urea Nitrogen 8 mg/dL (7-17); Calcium 9.1 mg/dL (8.4-10.2); Carbon Dioxide 22 mmol/L (22-30); Chloride 107.6 mmol/L (98-107); Glucose 96 mg/dL (65-100); Potassium 3.7 mmol/L (3.6-5.0); Sodium 143 mmol/L (137-145)
[2017-02-24] MEDS: APRESOLINE PO SCH (07:45)
--- NOTE | 2017-02-24 09:01 | Progress Note ---
Hospitalist Physical - Constitutional Vitals: Temp Pulse Resp BP Pulse Ox 99.1 F 69 20 182/76 100 02/24/17 02:03 02/24/17 07:45 02/24/17 02:18 02/24/17 07:45 02/24/17 02:03 General appearance: Present: other (altered mental status) Results - Labs CBC & Chem 7: 02/24/17 04:26 02/24/17 04:26 Labs: Laboratory Last Values WBC 6.7 K/mm3 (4.5-11.0) 02/24/17 04:26 RBC 4.37 M/mm3 (3.65-5.03) 02/24/17 04:26 Hgb 13.3 gm/dl (10.1-14.3) 02/24/17 04:26 Hct 40.8 % (30.3-42.9) 02/24/17 04:26 MCV 93 fl (79-97) 02/24/17 04:26 MCH 30 pg (28-32) 02/24/17 04:26 MCHC 33 % (30-34) 02/24/17 04:26 RDW 14.0 % (13.2-15.2) 02/24/17 04:26 Plt Count 310 K/mm3 (140-440) 02/24/17 04:26 Lymph % (Auto) 41.8 % (13.4-35.0) H 02/24/17 04:26 Barber % (Auto) 8.4 % (0.0-7.3) H 02/24/17 04:26 Eos % (Auto) 1.3 % (0.0-4.3) 02/24/17 04:26 Baso % (Auto) 1.1 % (0.0-1.8) 02/24/17 04:26 Lymph # 2.8 K/mm3 (1.2-5.4) 02/24/17 04:26 Barber # 0.6 K/mm3 (0.0-0.8) 02/24/17 04:26 Eos # 0.1 K/mm3 (0.0-0.4) 02/24/17 04:26 Baso # 0.1 K/mm3 (0.0-0.1) 02/24/17 04:26 Seg Neutrophils % 47.4 % (40.0-70.0) 02/24/17 04:26 Seg Neutrophils # 3.2 K/mm3 (1.8-7.7) 02/24/17 04:26 Sodium 143 mmol/L (137-145) 02/24/17 04:26 Potassium 3.7 mmol/L (3.6-5.0) 02/24/17 04:26 Chloride 107.6 mmol/L (98-107) H 02/24/17 04:26 Carbon Dioxide 22 mmol/L (22-30) 02/24/17 04:26 Anion Gap 17 mmol/L 02/24/17 04:26 BUN 8 mg/dL (7-17) 02/24/17 04:26 Creatinine 0.5 mg/dL (0.7-1.2) L 02/24/17 04:26 Estimated GFR > 60 ml/min 02/24/17 04:26 BUN/Creatinine Ratio 16.00 % 02/24/17 04:26 Glucose 96 mg/dL (65-100) 02/24/17 04:26 Calcium 9.1 mg/dL (8.4-10.2) 02/24/17 04:26 Total Creatine Kinase 140 units/L (30-135) H 02/23/17 01:29 CK-MB (CK-2) 2.1 ng/mL (0.0-4.0) 02/23/17 01:29 CK-MB (CK-2) Rel Index 1.5 (0-4) 02/23/17 01:29 Troponin T < 0.010 ng/mL (0.00-0.029) 02/23/17 01:29
[2017-02-24] MEDS: NAMENDA PO SCH (09:40)
[2017-02-24] MEDS: ZOLOFT PO SCH (09:40)
[2017-02-24 12:47] VITALS: BP 156/59
--- NOTE | 2017-02-24 15:16 | Discharge Summary ---
Providers - Providers Date of Admission: 02/23/17 08:52 Attending physician: ESTHELA ROTHMAN 02/23/17 11:52 Consult to Wound/ET Nurse [CONS] Routine Reason For Exam: wound eval Primary care physician: ANIMAL SITTER Hospitalization Condition: Good Hospital course: Patient is a 71 years old with past medical history of hypertension, hyperlipidemia and Dementia, presents to emergency department with a chief complaint of fall at assisted living facility. Patient has history of Alzheimer's confused and unable to provide history. Patient reportedly had a ground-level fall at [facility]. Patient have found down on the floor yesterday. Patient suffered abrasions to the right side of forehead. Patient diagnosed with status post fall, facial abrasion, hypertension, hyperlipidemia and mild rhabdomyolysis. CT of the head no acute intracranial abnormalities except mild soft tissue swelling to right side of forehead.CT of the cervical spine no acute fracture or subluxation of the cervical spine. She was treated IV fluid, antilipid and antihypertensive medications. Patient currently alert and oriented no acute mental changes. Patient clinically improved and stable for discharge. Patient was advised to follow up with her primary care. Discharged Diagnosed Status Post Fall Facial abrasion Hypertension Hyperlipidemia Mild rhabdomyolysis Disposition: DC/[place]-03 SNF [facility] Core Measure Documentation - Palliative Care Palliative Care/ Comfort Measures: Not Applicable - Core Measures Any of the following diagnoses?: none Exam - Constitutional Vitals: Temp Pulse Resp BP Pulse Ox 97.8 F 78 16 156/59 100 02/24/17 08:00 02/24/17 12:46 02/24/17 12:46 02/24/17 12:46 02/24/17 08:00 General appearance: Present: no acute distress - EENT Eyes: Present: PERRL ENT: hearing intact - Neck Neck: Present: supple - Respiratory Respiratory effort: normal Respiratory: bilateral: CTA - Cardiovascular Rhythm: regular Heart Sounds: Present: S1 & S2 - Extremities Extremities: no ischemia Peripheral Pulses: within normal limits - Abdominal General gastrointestinal: Present: soft, non-tender Female genitourinary: Present: deferred - Rectal Rectal Exam: deferred - Integumentary Integumentary: Present: clear ((abrasions to the right side of forehead)), warm , dry - Musculoskeletal Musculoskeletal: generalized weakness - Psychiatric Psychiatric: intact judgment & insight (impaired ) - Neurologic Neurologic: moves all extremities - Allied Health Allied health notes reviewed: nursing Plan Activity: fall precautions Weight Bearing Status: Weight Bear as Tolerated Diet: low fat, low salt, diabetic Follow up with: PRIMARY CARE, [Primary Care Provider] - 3-5 Days
== END 2017-02-24 13:19 | disposition home health service (06) | DRG 566 ==
LOC: ED 02-23 00:16 → CC2 02-23 08:52
PROVIDERS: ADMIT Internal Medicine; ATTEND Internal Medicine
DX: T79.6XXA Traumatic ischemia of muscle, initial encounter (principal); S00.81XA Abrasion of other part of head, initial encounter; I10 Essential (primary) hypertension; E78.5 Hyperlipidemia, unspecified; G30.9 Alzheimer's disease, unspecified; W18.39XA Other fall on same level, initial encounter; F02.80 Dementia in other diseases classified elsewhere, unspecified severity, without behavioral disturbance, psychotic disturbance, mood disturbance, and anxiety; Z79.899 Other long term (current) drug therapy; Y93.89 Activity, other specified; Y92.89 Other specified places as the place of occurrence of the external cause; Y99.8 Other external cause status
CPT/HCPCS: 36415; 70450; 72125; 80048; 82550; 82553; 84484; 85025; 93005; 93010; A9270-GY; J1650; J7030

== ENCOUNTER 2017-02-27 13:07 | Emergency (ER) | payer MEDICARE, OTHER ==
--- NOTE | 2017-02-27 13:59 | Emergency Department Report ---
ED Altered Mental Status HPI - General Chief Complaint: Altered Mental Status Stated Complaint: POSSIBLE CVA Time Seen by Provider: 02/27/17 13:48 Source: EMS Mode of arrival: Ambulatory Limitations: No Limitations - History of Present Illness Initial Comments: Patient is 71 years old female history of advanced dementia residing in a group home, brought here by EMS with a report that she has syncopal episode happened today. Denied any loss of consciousness. Patient is not communicating and according to the EMS states is her baseline. MD Complaint: altered mental status, confusion -: This morning Consistency of Symptoms: unknown Context: other (advised admission) Associated Symptoms: other (unable to obtain) - Related Data Home Medications Medication Instructions Recorded Confirmed Last Taken Donepezil [Aricept] 10 mg PO QHS 02/26/15 02/23/17 02/11/17 Haloperidol [Haldol] 2 mg PO BID 02/26/15 02/23/17 02/11/17 Sertraline [Zoloft] 75 mg PO QDAY 02/26/15 02/23/17 02/10/17 AtorvaSTATin [Lipitor] 40 mg PO QHS 02/08/17 02/23/17 02/10/17 Memantine HCl [Namenda] 10 mg PO BID 02/08/17 02/23/17 02/11/17 hydrALAZINE [Apresoline] 12.5 mg PO TID 02/08/17 02/23/17 02/10/17 Levofloxacin [Levaquin TAB] 500 mg PO QDAY 02/23/17 02/23/17 Unknown Allergies Allergy/AdvReac Type Severity Reaction Status Date / Time No Known Allergies Allergy Verified 02/08/17 11:44 ED Review of Systems ROS: Stated complaint: POSSIBLE CVA Other details as noted in HPI Comment: Unobtainable due to pts medical conditions ED Past Medical Hx - Past Medical History Previous Medical History?: Yes Hx Hypertension: Yes (Unknown) Hx CVA: No Hx Heart Attack/AMI: No Hx Congestive Heart Failure: No Hx Diabetes: No Hx Deep Vein Thrombosis: No Hx Pulmonary Embolism: No Hx GERD: No Hx Liver Disease: No Hx Renal Disease: No Hx of Cancer: No Hx Sickle Cell Disease: No Hx Arthritis: No Hx Headaches / Migraines: No Hx Seizures: No Hx Kidney Stones: No Hx Psychiatric Treatment: No Hx Asthma: No Hx COPD: No Hx Tuberculosis: No Hx Dementia: Yes Hx HIV: No Additional medical history: High Cholesterol - Surgical History Past Surgical History?: No Hx Coronary Stent: No Hx Open Heart Surgery: No Hx Pacemaker: No Hx Internal Defibrillator: No Hx Cholecystectomy: No Hx Appendectomy: No Hx Breast Surgery: No Additional Surgical History: left knee - Social History Smoking Status: Unknown if ever smoked Substance Use Type: None - Medications Home Medications: Home Medications Medication Instructions Recorded Confirmed Last Taken Type Donepezil [Aricept] 10 mg PO QHS 02/26/15 02/23/17 02/11/17 History Haloperidol [Haldol] 2 mg PO BID 02/26/15 02/23/17 02/11/17 History Sertraline [Zoloft] 75 mg PO QDAY 02/26/15 02/23/17 02/10/17 History AtorvaSTATin [Lipitor] 40 mg PO QHS 02/08/17 02/23/17 02/10/17 History Memantine HCl [Namenda] 10 mg PO BID 02/08/17 02/23/17 02/11/17 History hydrALAZINE [Apresoline] 12.5 mg PO TID 02/08/17 02/23/17 02/10/17 History Levofloxacin [Levaquin TAB] 500 mg PO QDAY 02/23/17 02/23/17 Unknown History ED Physical Exam - General Limitations: No Limitations General appearance: alert, in no apparent distress - Head Head exam: Present: other (4 cm linear abrasion just above the right eyebrow) - Eye Eye exam: Present: normal appearance, PERRL, EOMI Pupils: Present: normal accommodation - ENT ENT exam: Present: normal exam, normal orophraynx, mucous membranes moist - Neck Neck exam: Present: normal inspection, full ROM. Absent: tenderness, meningismus, lymphadenopathy - Respiratory Respiratory exam: Present: normal lung sounds bilaterally. Absent: respiratory distress, wheezes, rales, rhonchi, chest wall tenderness, accessory muscle use, decreased breath sounds, prolonged expiratory - Cardiovascular Cardiovascular Exam: Present: regular rate, normal rhythm, normal heart sounds - GI/Abdominal GI/Abdominal exam: Present: soft, normal bowel sounds. Absent: distended, tenderness, guarding, rebound, rigid, diminished bowel sounds, mass, bruit, pulsatile mass - Extremities Exam Extremities exam: Present: normal inspection, normal capillary refill - Back Exam Back exam: Present: normal inspection. Absent: CVA tenderness (R), CVA tenderness (L) - Neurological Exam Neurological exam: Present: alert, other (patient is moving all her extremities) - Psychiatric Psychiatric exam: Present: normal affect - Skin Skin exam: Present: warm, intact, normal color ED Course Vital Signs 02/27/17 02/27/17 02/27/17 13:19 13:23 13:30 Temperature 98.2 F Pulse Rate 65 65 65 Respiratory 12 18 13 Rate Blood Pressure 122/115 122/51 Blood Pressure 122/115 [Right] O2 Sat by Pulse 100 100 100 Oximetry 02/27/17 02/27/17 02/27/17 13:46 14:00 14:16 Temperature Pulse Rate 62 65 72 Respiratory 14 13 Rate Blood Pressure 123/53 126/53 126/53 Blood Pressure [Right] O2 Sat by Pulse 100 100 Oximetry 02/27/17 02/27/17 14:30 14:46 Temperature Pulse Rate 64 67 Respiratory 11 L 12 Rate Blood Pressure 126/53 126/53 Blood Pressure [Right] O2 Sat by Pulse 99 100 Oximetry - Reevaluation(s) Reevaluation #1: 02/27/17 16:01 Patient is sitting in the bed in no acute distress smiling and able to respond to questions. She still continue her family interacting well with them. No evidence of syncope or altered mental status observed in the ER. We'll discharge patient back to the group home. - Lab Data Result diagrams: 02/27/17 14:49 02/27/17 14:49 Lab Results 02/27/17 02/27/17 02/27/17 Range/Units 14:49 14:49 14:49 WBC 7.1 (4.5-11.0) K/mm3 RBC 4.19 (3.65-5.03) M/mm3 Hgb 13.0 (10.1-14.3) gm/dl Hct 39.5 (30.3-42.9) % MCV 94 (79-97) fl MCH 31 (28-32) pg MCHC 33 (30-34) % RDW 14.1 (13.2-15.2) % Plt Count 269 (140-440) K/mm3 Lymph % (Auto) 19.0 (13.4-35.0) % Rush % (Auto) 8.3 H (0.0-7.3) % Eos % (Auto) 0.5 (0.0-4.3) % Baso % (Auto) 0.8 (0.0-1.8) % Lymph # 1.3 (1.2-5.4) K/mm3 Rush # 0.6 (0.0-0.8) K/mm3 Eos # 0.0 (0.0-0.4) K/mm3 Baso # 0.1 (0.0-0.1) K/mm3 Seg Neutrophils % 71.4 H (40.0-70.0) % Seg Neutrophils # 5.0 (1.8-7.7) K/mm3 Sodium 142 (137-145) mmol/L Potassium 4.8 D (3.6-5.0) mmol/L Chloride 105.6 (98-107) mmol/L Carbon Dioxide 24 (22-30) mmol/L Anion Gap 17 mmol/L BUN 13 (7-17) mg/dL Creatinine 0.8 D (0.7-1.2) mg/dL Estimated GFR > 60 ml/min BUN/Creatinine Ratio 16.25 % Glucose 86 (65-100) mg/dL Lactic Acid 1.50 (0.7-2.0) mmol/L Calcium 9.3 (8.4-10.2) mg/dL Total Bilirubin 0.20 (0.1-1.2) mg/dL AST 22 (5-40) units/L ALT 22 (7-56) units/L Alkaline Phosphatase 168 H (35-129) units/L Troponin T < 0.010 (0.00-0.029) ng/mL Total Protein 6.1 L (6.3-8.2) g/dL Albumin 3.5 L (3.9-5) g/dL Albumin/Globulin Ratio 1.3 % Urine Color (Yellow) Urine Turbidity (Clear) Urine pH (5.0-7.0) Ur Specific [place] (1.003-1.030) Urine Protein (Negative) mg/dL Urine Glucose (UA) (Negative) mg/dL Urine Ketones (Negative) mg/dL Urine Blood (Negative) Urine Nitrite (Negative) Urine Bilirubin (Negative) Urine Urobilinogen (<2.0) mg/dL Ur Leukocyte Esterase (Negative) Urine WBC (Auto) (0.0-6.0) /HPF Urine RBC (Auto) (0.0-6.0) /HPF U Epithel Cells (Auto) (0-13.0) /HPF Urine Mucus /HPF 02/27/17 Range/Units 15:12 WBC (4.5-11.0) K/mm3 RBC (3.65-5.03) M/mm3 Hgb (10.1-14.3) gm/dl Hct (30.3-42.9) % MCV (79-97) fl MCH (28-32) pg MCHC (30-34) % RDW (13.2-15.2) % Plt Count (140-440) K/mm3 Lymph % (Auto) (13.4-35.0) % Rush % (Auto) (0.0-7.3) % Eos % (Auto) (0.0-4.3) % Baso % (Auto) (0.0-1.8) % Lymph # (1.2-5.4) K/mm3 Rush # (0.0-0.8) K/mm3 Eos # (0.0-0.4) K/mm3 Baso # (0.0-0.1) K/mm3 Seg Neutrophils % (40.0-70.0) % Seg Neutrophils # (1.8-7.7) K/mm3 Sodium (137-145) mmol/L Potassium (3.6-5.0) mmol/L Chloride (98-107) mmol/L Carbon Dioxide (22-30) mmol/L Anion Gap mmol/L BUN (7-17) mg/dL Creatinine (0.7-1.2) mg/dL Estimated GFR ml/min BUN/Creatinine Ratio % Glucose (65-100) mg/dL Lactic Acid (0.7-2.0) mmol/L Calcium (8.4-10.2) mg/dL Total Bilirubin (0.1-1.2) mg/dL AST (5-40) units/L ALT (7-56) units/L Alkaline Phosphatase (35-129) units/L Troponin T (0.00-0.029) ng/mL Total Protein (6.3-8.2) g/dL Albumin (3.9-5) g/dL Albumin/Globulin Ratio % Urine Color Yellow (Yellow) Urine Turbidity Clear (Clear) Urine pH 5.0 (5.0-7.0) Ur Specific [place] 1.021 (1.003-1.030) Urine Protein 30 mg/dl (Negative) mg/dL Urine Glucose (UA) Neg (Negative) mg/dL Urine Ketones Neg (Negative) mg/dL Urine Blood Neg (Negative) Urine Nitrite Neg (Negative) Urine Bilirubin Neg (Negative) Urine Urobilinogen < 2.0 (<2.0) mg/dL Ur Leukocyte Esterase Neg (Negative) Urine WBC (Auto) 4.0 (0.0-6.0) /HPF Urine RBC (Auto) 2.0 (0.0-6.0) /HPF U Epithel Cells (Auto) 2.0 (0-13.0) /HPF Urine Mucus 2+ /HPF - EKG Data -: EKG Interpreted by Me Interpretation: no acute changes - Radiology Data Radiology results: report reviewed CT brain was no acute abnormalities Chest x-ray unremarkable. - Medical Decision Making Patient is back to her baseline per family who just came to visit her. CT brain lab work chest x-ray all come back with no acute abnormalities. Patient will be discharged back to her group home. Critical care attestation.: If time is entered above; I have spent that time in minutes in the direct care of this critically ill patient, excluding procedure time. ED Disposition Clinical Impression: Altered mental status, Syncope Disposition: DC-01 TO HOME OR SELFCARE Is pt being admited?: No Condition: Stable Instructions: Syncope (ED), Dementia (ED) Referrals: PRIMARY CARE, [Primary Care Provider] - 3-5 Days
[2017-02-27 14:50] VITALS: BP 126/53
--- NOTE | 2017-02-27 15:10 | Cat Scan Report ---
FINAL REPORT PROCEDURE: CT HEAD/BRAIN WO CON TECHNIQUE: Computerized tomography of the head was performed without contrast material. HISTORY: Altered Mental Status COMPARISON: Head CT dated February 23, 2017 FINDINGS: No calvarial fracture is seen. Visualized portions of the paranasal sinuses and mastoid air cells are clear. Mild calcifications are seen in the distal ICAs. Moderate diffuse volume loss is advanced for the patient's age. Probable compensatory enlargement of the ventricular system is seen but consideration should be given to normal pressure hydrocephalus, also. Mild chronic small vessel ischemic changes are seen in the periventricular white matter, similar to prior study. No acute CVA is seen. No acute intracranial hemorrhage or mass effect is seen. IMPRESSION: Moderate diffuse volume loss is advanced for the patient's age. Ventricular prominence is probably compensatory but consideration should be given to normal pressure hydrocephalus. Mild chronic small vessel ischemic changes are seen in the white matter without evidence of acute CVA.
[2017-02-27 15:21] LABS: Alanine Aminotransferase 22 units/L (7-56); Albumin 3.5 g/dL (3.9-5); Albumin/Globulin Ratio 1.3 %; Alkaline Phosphatase 168 units/L (35-129); Anion Gap 17 mmol/L; BUN/Creatinine Ratio 16.25; Blood Urea Nitrogen 13 mg/dL (7-17); Calcium 9.3 mg/dL (8.4-10.2); Carbon Dioxide 24 mmol/L (22-30); Chloride 105.6 mmol/L (98-107); Glucose 86 mg/dL (65-100); Potassium 4.8 mmol/L (3.6-5.0); Sodium 142 mmol/L (137-145); Total Protein 6.1 g/dL (6.3-8.2)
[2017-02-27 15:27] LABS: Basophils % (Auto) 0.8 % (0.0-1.8); Eosinophils % (Auto) 0.5 % (0.0-4.3); Hematocrit 39.5 % (30.3-42.9); Mean Corpuscular HGB Conc 33 % (30-34); Mean Corpuscular Hemoglobin 31 pg (28-32); Mean Corpuscular Volume 94 fl (79-97); Platelet Count 269 K/mm3 (140-440); Red Blood Count 4.19 M/mm3 (3.65-5.03); Red Cell Distribution Width 14.1 % (13.2-15.2); White Blood Count 7.1 K/mm3 (4.5-11.0)
[2017-02-27 15:28] LABS: Bilirubin,Urine NEG (Negative); Blood,Urine NEG (Negative); Ketones,Urine NEG (Negative); Leukocyte Esterase,Urine NEG (Negative); Mucus,Urine 2+ /HPF; Nitrite,Urine NEG (Negative); Urobilinogen,Urine < 2.0 mg/dL (<2.0)
--- NOTE | 2017-02-27 16:42 | XRay Report ---
FINAL REPORT PROCEDURE: XR CHEST 1V AP TECHNIQUE: Chest radiograph anteroposterior view. CPT 40925 HISTORY: Altered Mental Status COMPARISON: No prior studies are available for comparison. FINDINGS: Heart: Normal. Mediastinum/Vessels: Calcification is seen of the aortic arch. Lungs/Pleural space: Calcified granuloma are seen in the left lower lobe. Bony thorax: Arthritic changes are seen in the thoracic spine. Life support devices: None. IMPRESSION: No acute cardiopulmonary abnormality.
== END 2017-02-27 17:15 | disposition home or self-care (01) ==
LOC: ED 13:07
DX: R41.82 Altered mental status, unspecified (principal); R55 Syncope and collapse; I10 Essential (primary) hypertension; F03.90 Unspecified dementia, unspecified severity, without behavioral disturbance, psychotic disturbance, mood disturbance, and anxiety; E78.00 Pure hypercholesterolemia, unspecified
CPT/HCPCS: 36415; 70450; 71010; 80053; 81001; 82140; 84484; 85025

== ENCOUNTER 2017-03-21 08:31 | Outpatient (CLI) | payer MEDICARE, OTHER ==
--- NOTE | 2017-03-21 09:13 | XRay Report ---
LEFT KNEE RADIOGRAPHS INDICATION: Fracture of upper end of left tibia. COMPARISON: 02/11/2017. FINDINGS: AP, oblique and crosstable lateral left knee radiographs again demonstrate 2 proximal tibial metaphyseal threaded screws tips extending beyond the medial cortex. Intact articulation. Superior and inferior patellar enthesophytes. Small suprapatellar effusion. Slight degenerative spurring. Possible osteopenia. CONCLUSION: Small left suprapatellar effusion with few degenerative and iatrogenic changes, as above. Please correlate. Thank you for the opportunity to participate in this patient's care.
== END 2017-03-21 08:32 | disposition home or self-care (01) ==
LOC: XRAY 08:31
PROVIDERS: ATTEND Orthopaedic Surgery
DX: S82.102A Unspecified fracture of upper end of left tibia, initial encounter for closed fracture (principal); M17.12 Unilateral primary osteoarthritis, left knee; I10 Essential (primary) hypertension; E78.00 Pure hypercholesterolemia, unspecified; X58.XXXA Exposure to other specified factors, initial encounter; Y93.89 Activity, other specified; Y92.89 Other specified places as the place of occurrence of the external cause; Y99.8 Other external cause status